=== PATIENT | male | born 1960 | race African-American/Black ===

== ENCOUNTER 2019-06-03 12:50 | Inpatient (IN) | payer MEDICAID ==
[~2019-06-03] VITALS: Ht 167.6 cm; Wt 97.5 kg
[~2019-06-03 12:50] MED LIST: FURO-151 PO; GLIP5TAB12 PO; LOSA50TA3 PO; METF-414 PO
[2019-06-03 14:10] LABS: HEMATOCRIT. 33.3 % (42.0-52.0); HEMOGLOBIN. 10.6 g/dL (14.0-18.0); MEAN CORPUSCULAR HEMOGLOBIN 28.3 pg (28.0-32.0); MEAN CORPUSCULAR VOLUME 89.1 fL (80.0-94.0); MEAN PLATELET VOLUME 8.7 fl (7.4-10.4); PLATELET 331 x1000/uL (130-400); RED BLOOD CELL COUNT 3.74 mill/uL (4.7-6.1); RED CELL DISTRIBUTION WIDTH 15.7 % (11.6-14.6)
[2019-06-03 14:17] LABS: CHLORIDE 106 mEq/L (98-107)
[2019-06-03 14:35] LABS: NUCLEATED RED BLOOD CELLS 1 /100 WBC
[2019-06-03 14:36] LABS: PLATELET ESTIMATE NORMAL
[2019-06-03] MEDS ORDERED: MORPHINE SULFATE 4 MG/ML CPJ (NOT FOR IM USE) IV ONE (15:15)
[2019-06-03] MEDS ORDERED: FUROSEMIDE 40MG/4ML VIAL IVP ONE (16:45)
[2019-06-03] MEDS ORDERED: DEXTROSE 50% WATER 50ML SYRINGE IV PRN (19:15)
[2019-06-03 20:00] VITALS: BP 110/66
[2019-06-03 20:30] VITALS: BP 110/66
[2019-06-03] MEDS: BLOOD SUGAR DIAGNOSTIC STRIP TEST SCH (20:38)
[2019-06-03] MEDS: CARVEDILOL 3.125 MG TABLET PO SCH (20:52)
[2019-06-03] MEDS: INSULIN LISPRO 100 UNITS/ML SUBCUT SCH (20:52)
[2019-06-03 21:07] LABS: HEMATOCRIT. 33.7 % (42.0-52.0); HEMOGLOBIN. 10.5 g/dL (14.0-18.0); MEAN CORPUSCULAR HEMOGLOBIN 28.2 pg (28.0-32.0); MEAN CORPUSCULAR VOLUME 90.1 fL (80.0-94.0); MEAN PLATELET VOLUME 8.1 fl (7.4-10.4); PLATELET 278 x1000/uL (130-400); RED BLOOD CELL COUNT 3.74 mill/uL (4.7-6.1); RED CELL DISTRIBUTION WIDTH 15.6 % (11.6-14.6)
[2019-06-03] MEDS: HYDRALAZINE HCL 50MG TABLET PO SCH (22:00)
[2019-06-03 22:49] LABS: PLATELET ESTIMATE NORMAL
[2019-06-04] VITALS: BP 90/55
[2019-06-04 04:00] VITALS: BP 110/68
[2019-06-04] MEDS: HYDRALAZINE HCL 50MG TABLET PO SCH ×3 (06:12→22:00)
[2019-06-04] MEDS ORDERED: FUROSEMIDE 40MG/4ML VIAL IVP SCH (07:15)
[2019-06-04 08:00] VITALS: BP 124/55
[2019-06-04] MEDS: BLOOD SUGAR DIAGNOSTIC STRIP TEST SCH ×3 (08:01→21:11)
[2019-06-04] MEDS ORDERED: LOSARTAN POTASSIUM 50 MG TABLET PO SCH (09:00)
[2019-06-04] MEDS: INSULIN LISPRO 100 UNITS/ML SUBCUT SCH ×4 (09:49→21:00)
[2019-06-04] MEDS: ASPIRIN 325MG EC TABLET PO SCH (09:50)
[2019-06-04] MEDS: CARVEDILOL 3.125 MG TABLET PO SCH ×2 (09:50→21:00)
[2019-06-04] MEDS: HYDROCODONE/ACETAMINOPHEN 10/325MG TABLET PO PRN ×2 (09:59→20:53)
[2019-06-04 12:00] VITALS: BP 113/55
[2019-06-04] MEDS ORDERED: CLONIDINE 0.1MG TABLET PO PRN (13:15)
[2019-06-04] MEDS ORDERED: DEXTROSE 50% WATER 50ML SYRINGE IV PRN (13:15)
[2019-06-04] MEDS ORDERED: DOCUSATE SODIUM 100MG CAPSULE PO PRN (13:15)
[2019-06-04] MEDS ORDERED: ONDANSETRON HCL 4MG/2ML INJ IV PRN (13:15)
[2019-06-04] MEDS ORDERED: MAGNESIUM/ALUMINUM HYDROXIDE/SIMETHICONE 30ML UDC PO PRN (13:15)
[2019-06-04] MEDS: SODIUM CHLORIDE 0.45% 1,000 ML IV SCH (14:01)
[2019-06-04] MEDS: ENOXAPARIN 40MG/0.4ML SYR SUBCUT SCH (14:07)
[2019-06-04 16:00] VITALS: BP 123/55
[2019-06-04 20:00] VITALS: BP 109/62
[2019-06-05] VITALS: BP 113/61
[2019-06-05 04:00] VITALS: BP 114/59
[2019-06-05] MEDS: HYDRALAZINE HCL 50MG TABLET PO SCH (06:00)
[2019-06-05] MEDS: BLOOD SUGAR DIAGNOSTIC STRIP TEST SCH ×4 (06:19→21:00)
[2019-06-05] MEDS: SODIUM CHLORIDE 0.45% 1,000 ML IV SCH (06:43)
[2019-06-05 06:59] LABS: BASOPHILS % 0.5 % (0.0-2.0); EOSINOPHILS % 1.2 % (0.0-5.0); HEMOGLOBIN. 10.1 g/dL (14.0-18.0); LYMPHOCYTES % 7.7 % (20.0-50.0); MEAN CORPUSCULAR HEMOGLOBIN 28.6 pg (28.0-32.0); MEAN CORPUSCULAR VOLUME 87.7 fL (80.0-94.0); MEAN PLATELET VOLUME 8.4 fl (7.4-10.4); MONOCYTES % 14.5 % (2.0-8.0); NEUTROPHILS % 76.1 % (40.0-76.0); PLATELET 277 x1000/uL (130-400); RED BLOOD CELL COUNT 3.54 mill/uL (4.7-6.1); RED CELL DISTRIBUTION WIDTH 15.8 % (11.6-14.6)
[2019-06-05 07:24] LABS: PHOSPHORUS 4.2 mg/dL (2.5-4.9)
[2019-06-05] MEDS: OMEPRAZOLE 20MG CAPSULE EXTENDED RELEASE PO SCH (07:40)
[2019-06-05 08:00] VITALS: BP 109/59
[2019-06-05] MEDS: INSULIN LISPRO 100 UNITS/ML SUBCUT SCH ×4 (08:10→20:43)
[2019-06-05] MEDS: ASPIRIN 325MG EC TABLET PO SCH ×2 (09:00→12:49)
[2019-06-05] MEDS: CARVEDILOL 3.125 MG TABLET PO SCH ×2 (09:00→20:44)
[2019-06-05 12:00] VITALS: BP 129/69
[2019-06-05] MEDS: HYDROCODONE/ACETAMINOPHEN 10/325MG TABLET PO PRN ×2 (13:01→20:43)
[2019-06-05] MEDS: ENOXAPARIN 40MG/0.4ML SYR SUBCUT SCH (13:02)
[2019-06-05 16:26] VITALS: BP 133/64
[2019-06-05 20:00] VITALS: BP 140/76
[2019-06-06] VITALS: BP_SYST 102; BP_SYST 112; BP_DIAS 55; BP_DIAS 63
[2019-06-06] MEDS: HYDROCODONE/ACETAMINOPHEN 10/325MG TABLET PO PRN ×3 (04:48→20:11)
[2019-06-06 05:34] LABS: BASOPHILS % 0.3 % (0.0-2.0); EOSINOPHILS % 1.1 % (0.0-5.0); HEMATOCRIT. 29.9 % (42.0-52.0); HEMOGLOBIN. 9.7 g/dL (14.0-18.0); MEAN CORPUSCULAR HEMOGLOBIN 28.3 pg (28.0-32.0); MEAN CORPUSCULAR VOLUME 87.1 fL (80.0-94.0); MEAN PLATELET VOLUME 8.2 fl (7.4-10.4); MONOCYTES % 13.9 % (2.0-8.0); NEUTROPHILS % 76.7 % (40.0-76.0); PLATELET 276 x1000/uL (130-400); RED BLOOD CELL COUNT 3.44 mill/uL (4.7-6.1); RED CELL DISTRIBUTION WIDTH 15.3 % (11.6-14.6)
[2019-06-06 08:00] VITALS: BP 104/57
[2019-06-06] MEDS: BLOOD SUGAR DIAGNOSTIC STRIP TEST SCH ×4 (08:24→21:35)
[2019-06-06] MEDS: INSULIN LISPRO 100 UNITS/ML SUBCUT SCH ×4 (08:43→21:00)
[2019-06-06] MEDS: ASPIRIN 325MG EC TABLET PO SCH (08:45)
[2019-06-06] MEDS: OMEPRAZOLE 20MG CAPSULE EXTENDED RELEASE PO SCH (08:45)
[2019-06-06] MEDS: CARVEDILOL 3.125 MG TABLET PO SCH ×2 (09:00→21:38)
[2019-06-06 12:00] VITALS: BP 100/61
[2019-06-06 12:35] LABS: *AMPHETAMINES SCREEN URINE NEGATIVE (NEGATIVE); *BARBITURATES SCREEN URINE NEGATIVE (NEGATIVE); *BENZODIAZEPINES SCREEN URINE NEGATIVE (NEGATIVE)
[2019-06-06 12:36] LABS: *COCAINE SCREEN URINE NEGATIVE (NEGATIVE); CANNABINOID URINE SCREEN NEGATIVE (NEGATIVE); METHADONE URINE SCREEN NEGATIVE (NEGATIVE); OPIATES URINE SCREEN PRESUMTIVE POSITIVE (NEGATIVE); PHENCYCLIDINE URINE SCREEN NEGATIVE (NEGATIVE)
[2019-06-06] MEDS: ENOXAPARIN 40MG/0.4ML SYR SUBCUT SCH (14:05)
[2019-06-06 16:05] VITALS: BP 106/63
[2019-06-06 20:00] VITALS: BP 117/64
[2019-06-07] VITALS (7 sets, daily range): BP systolic 113–132; BP diastolic 59–75
[2019-06-07] MEDS: BLOOD SUGAR DIAGNOSTIC STRIP TEST SCH ×4 (07:40→21:39)
[2019-06-07] MEDS: INSULIN LISPRO 100 UNITS/ML SUBCUT SCH ×4 (08:10→21:00)
[2019-06-07] MEDS: OMEPRAZOLE 20MG CAPSULE EXTENDED RELEASE PO SCH (08:22)
[2019-06-07] MEDS: ASPIRIN 325MG EC TABLET PO SCH (08:22)
[2019-06-07] MEDS: CARVEDILOL 3.125 MG TABLET PO SCH (08:23)
[2019-06-07] MEDS: HYDROCODONE/ACETAMINOPHEN 10/325MG TABLET PO PRN ×2 (09:47→17:39)
[2019-06-07] MEDS: SODIUM CHLORIDE 0.45% 1,000 ML IV SCH ×3 (09:48→21:42)
[2019-06-07] MEDS ORDERED: CARV6.2548 MT (13:09)
[2019-06-07] MEDS: ENOXAPARIN 40MG/0.4ML SYR SUBCUT SCH (14:19)
[2019-06-07] MEDS: CARVEDILOL 6.25 MG TABLET PO SCH (21:39)
[2019-06-08] VITALS: BP 125/69
[2019-06-08 04:00] VITALS: BP 127/72
[2019-06-08] MEDS: SODIUM CHLORIDE 0.45% 1,000 ML IV SCH (04:33)
[2019-06-08] MEDS: HYDROCODONE/ACETAMINOPHEN 10/325MG TABLET PO PRN ×2 (05:57→13:56)
[2019-06-08 08:00] VITALS: BP 163/90
[2019-06-08] MEDS: BLOOD SUGAR DIAGNOSTIC STRIP TEST SCH ×2 (08:01→12:39)
[2019-06-08] MEDS: INSULIN LISPRO 100 UNITS/ML SUBCUT SCH ×2 (08:02→12:39)
[2019-06-08] MEDS: ASPIRIN 325MG EC TABLET PO SCH (08:40)
[2019-06-08] MEDS: CARVEDILOL 6.25 MG TABLET PO SCH (08:41)
[2019-06-08] MEDS ORDERED: FAMOTIDINE 20MG TABLET PO SCH (09:00)
[2019-06-08] MEDS ORDERED: CARVEDILOL 6.25 MG TABLET PO SCH (10:30)
[2019-06-08 12:00] VITALS: BP 141/72
[2019-06-08] MEDS ORDERED: SORBITOL 70% SOLN 30ML PO NR (13:00)
[2019-06-08] MEDS ORDERED: IPRATROPIUM/ALBUTEROL 0.5-3(2.5)MG/3ML NEB HHN PRN (13:30)
[2019-06-08 13:56] VITALS: BP 141/70
[2019-06-08] MEDS: ENOXAPARIN 40MG/0.4ML SYR SUBCUT SCH (13:56)
[2019-06-08] MEDS ORDERED: CARVEDILOL 12.5MG TABLET PO SCH (21:00)
== END 2019-06-08 16:00 | disposition home or self-care (01) | DRG 194 ==
LOC: ER 12:50 → 7WST 16:45 → ENRESERV 17:20
PROVIDERS: ADMIT Internal Medicine; ATTEND Internal Medicine
DX: I13.0 Hypertensive heart and chronic kidney disease with heart failure and stage 1 through stage 4 chronic kidney disease, or unspecified chronic kidney disease (principal); N17.9 Acute kidney failure, unspecified; E11.22 Type 2 diabetes mellitus with diabetic chronic kidney disease; E66.01 Morbid (severe) obesity due to excess calories; I08.1 Rheumatic disorders of both mitral and tricuspid valves; E11.65 Type 2 diabetes mellitus with hyperglycemia; M94.0 Chondrocostal junction syndrome [Tietze]; I50.23 Acute on chronic systolic (congestive) heart failure; I42.9 Cardiomyopathy, unspecified; D64.9 Anemia, unspecified; D72.829 Elevated white blood cell count, unspecified; N18.9 Chronic kidney disease, unspecified; R74.0 Nonspecific elevation of levels of transaminase and lactic acid dehydrogenase [LDH]; I48.91 Unspecified atrial fibrillation; J45.909 Unspecified asthma, uncomplicated; Z95.810 Presence of automatic (implantable) cardiac defibrillator; Z68.34 Body mass index [BMI] 34.0-34.9, adult; Z79.899 Other long term (current) drug therapy; Z79.84 Long term (current) use of oral hypoglycemic drugs; Z71.3 Dietary counseling and surveillance
CPT/HCPCS: 36415; 71045; 73620; 76700; 80048; 80061; 80076; 80305; 82575; 82962; 83036; 83735; 83880; 84100; 84443; 84484; 87077; 87186; 93005; 93306; 93970; 94640; 96374; 96375; 97162; 97166; 99285; J1650; J1815; J1940; J2270; J7620